=== PATIENT | male | born 1975 | race Two or more races ===

== ENCOUNTER 2019-07-20 10:51 | Inpatient (IN) | payer OTHER ==
[~2019-07-20] VITALS: Ht 274.3 cm; Wt 5.0 kg
[2019-07-20] MEDS ORDERED: DICY20TA (11:51)
== END 2019-07-30 17:19 | disposition home or self-care (01) | DRG 331 ==
LOC: O/R 11:00 → SURH 07-27 06:15
PROVIDERS: ADMIT Colon & Rectal Surgery
PROC: 07BB4ZX Excision of Mesenteric Lymphatic, Percutaneous Endoscopic Approach, Diagnostic (ICD-10-PCS; 2019-07-27)
PROC: 0DTF4ZZ Resection of Right Large Intestine, Percutaneous Endoscopic Approach (ICD-10-PCS; principal; 2019-07-27 18:00)
DX: C18.0 Malignant neoplasm of cecum (principal); R59.0 Localized enlarged lymph nodes; K63.89 Other specified diseases of intestine; F17.200 Nicotine dependence, unspecified, uncomplicated

== ENCOUNTER 2019-09-01 05:57 | Day surgery (SDC) | payer OTHER ==
[~2019-09-01 05:57] MED LIST: DICY20TA
== END 2019-09-01 10:09 | disposition home or self-care (01) ==
LOC: CIR.AMB 05:57
DX: C18.0 Malignant neoplasm of cecum (principal)
CPT/HCPCS: 36561; C1751

== ENCOUNTER 2020-07-14 12:40 | Day surgery (SDC) | payer OTHER | END 2020-07-14 16:30 | disposition home or self-care (01) | LOC: AMB-ENDOS 12:40 | PROVIDERS: ATTEND Colon & Rectal Surgery | DX: D12.8 Benign neoplasm of rectum (principal); K64.1 Second degree hemorrhoids; Z20.828 Contact with and (suspected) exposure to other viral communicable diseases ==

== ENCOUNTER 2021-07-27 07:36 | Day surgery (SDC) | payer OTHER | END 2021-07-27 15:00 | disposition home or self-care (01) | LOC: AMB-ENDOS 07:36 | PROVIDERS: ATTEND Colon & Rectal Surgery | DX: K62.1 Rectal polyp (principal); Z20.822 Contact with and (suspected) exposure to COVID-19 ==